=== PATIENT | female | born 1950 | race Caucasian/White ===

== ENCOUNTER 2016-06-07 14:37 | Emergency (ER) | payer OTHER ==
[2016-06-07 14:54] VITALS: BP 164/75
--- NOTE | 2016-06-07 14:56 | ED Physician Documentation ---
General Adult - HISTORIAN Historian: patient - HPI Stated Complaint: right eye redness Chief Complaint: General Adult Onset: days ago (1) Timing: still present Severity: moderate Further Comments: yes (Pt is a 66 yo female with R eye redness. Some burning irritation. No increase in pain/irritation when looking into light. No fever. Pt also has a sinus infection for which she started taking Augmentin yesterday. Pt has had one dose Augmentin.) - ROS CONST: no problems EYES/ENT: other (sinusitis, started Augmentin yesterday; R eye redness) CVS/RESP: none GI/: none MS/SKIN/LYMPH: none - PAST HX Past History: other (Afib, depression) Surgeries/Procedures: , other (mitral valve repair x 2; tonsillectomy; cataract x 2; perforated ulcer repair.) Allergies/Adverse Reactions: Allergies Allergy/AdvReac Type Severity Reaction Status Date / Time sotalol AdvReac Unknown Hives Verified 06/07/16 14:46 Sulfa (Sulfonamide AdvReac Unknown Hives Verified 06/07/16 14:46 Antibiotics) Home Medications: Ambulatory Orders Medication Instructions Recorded Diltiazem HCl [Cardizem] 120 mg PO DAILY 06/07/16 - SOCIAL HX Smoking History: non-smoker - FAMILY HX Family History: No - VITAL SIGNS Vital Signs: Vital Signs Temp Pulse Resp BP Pulse Ox 98.3 F 107 H 19 164/75 96 06/07/16 14:50 06/07/16 14:50 06/07/16 14:50 06/07/16 14:50 06/07/16 14:50 - REVIEWED ASSESSMENTS Nursing Assessment Reviewed: Yes Vitals Reviewed: Yes Progress - Progress Progress: Rx Polytrim ophthalmic. One or two drops in both eyes every 4 to 6 hrs for 7 to 10 days. Maximum 6 drops/eye/day. General Adult Physical Exam - PHYSICAL EXAM GENERAL APPEARANCE: no distress EENT: other (R eye: mild scleral injection; PERRL) NECK: normal inspection, supple RESPIRATORY: no resp distress, chest non-tender, breath sounds normal SKIN: warm/dry, normal color EXTREMITIES: normal range of motion NEURO: oriented X3, motor nml, sensation nml Discharge Clincal Impression: conjunctivitis, Recent dx sinusitis Referrals: Mounika Servin MD [Primary Care Provider] - 2 Days Home Medications: Ambulatory Orders Diltiazem HCl [Cardizem] 120 mg PO DAILY 06/07/16 Condition: Good Disposition: 01 HOME, SELF-CARE Decision to Admit: NO Decision Time: 14:56
== END 2016-06-07 15:00 | disposition home or self-care (01) ==
LOC: ED 14:37
DX: H10.9 Unspecified conjunctivitis (principal)
CPT/HCPCS: 99283

== ENCOUNTER 2016-12-15 08:56 | Outpatient (CLI) | payer OTHER, MEDICARE ==
[2016-12-15 10:02] LABS: eGFR (African) > 60; eGFR (Non-African) > 60
== END 2016-12-15 08:57 ==
LOC: LAB 08:56
PROVIDERS: ATTEND Family Medicine
DX: Z86.39 Personal history of other endocrine, nutritional and metabolic disease (principal); Z00.00 Encounter for general adult medical examination without abnormal findings
CPT/HCPCS: 36415; 80053; 80061; 84443

== ENCOUNTER 2017-01-09 12:45 | Outpatient (CLI) | payer OTHER, MEDICARE | END 2017-01-09 13:29 | LOC: RAD 12:45 | PROVIDERS: ATTEND Family Medicine | DX: M81.0 Age-related osteoporosis without current pathological fracture (principal) | CPT/HCPCS: 77080 ==

== ENCOUNTER 2017-12-17 09:03 | Outpatient (CLI) | payer OTHER ==
[2017-12-17 11:03] LABS: eGFR (Non-African) > 60
== END 2017-12-17 15:24 ==
LOC: LAB 09:03
PROVIDERS: ATTEND Family Medicine
DX: M81.0 Age-related osteoporosis without current pathological fracture (principal); Z00.00 Encounter for general adult medical examination without abnormal findings
CPT/HCPCS: 36415; 80053; 80061; 82306

== ENCOUNTER 2018-01-08 10:23 | Outpatient (CLI) | payer OTHER | END 2018-01-08 10:28 | disposition home or self-care (01) | LOC: RAD 10:23 | PROVIDERS: ATTEND Family Medicine | DX: M81.0 Age-related osteoporosis without current pathological fracture (principal) | CPT/HCPCS: 77080 ==

== ENCOUNTER 2018-02-08 07:13 | Day surgery (SDC) | payer OTHER ==
[2018-02-08] MEDS ORDERED: PROPOFOL 200 MG/20 ML VIAL IV ONE (08:48)
--- NOTE | 2018-02-08 14:20 | GI Report ---
REFERRING PHYSICIAN: Dr. Mounika Servin NAMED ACCOUNT EXECUTIVE: Jasmeet Perez MD PROCEDURE MEDICATION: Propofol as per anesthesia. INDICATIONS: Patient is a 67-year-old who has a family history of colorectal cancer. She reportedly had a positive Cologuard test. She denies any obvious changes in her stool or blood in her stool. Patient is on Xarelto for her mitral valve and stopped it 48 hours ago. She has a history of a perforated ulcer in 1987. She is stable cardiac short at present. She had a mitral valve replacement. PROCEDURE PERFORMED: Colonoscopy and polypectomy. PROCEDURE: An Olympus video colonoscope was advanced to the rectum. The colonoscope was slowly advanced all the way to the cecum. The appendiceal orifice and ileocecal valve looked normal. Near the hepatic flexure, patient had 2 polyps varying from 3 to 4 mm in size removed with a cold snare. In the main part of the transverse colon, no obvious intraluminal lesions were noted. In the descending colon, some redundancy. The sigmoid had a few small diverticula. Retroflexion of the rectum was normal. Patient tolerated the procedure well. FINDINGS: Two polyps removed near the hepatic flexure and submitted to pathology. RECOMMENDATIONS: 1. Restart her Xarelto tomorrow. 2. Pending the pathology of the polyps, consider re-looking at her colon in 5 years. cc: Dr. Mounika CHEATHAM
== END 2018-02-08 07:15 ==
LOC: OPSURG 07:13
PROVIDERS: ATTEND Internal Medicine Gastroenterology
DX: Z12.11 Encounter for screening for malignant neoplasm of colon (principal); Z80.0 Family history of malignant neoplasm of digestive organs; D12.3 Benign neoplasm of transverse colon; K57.30 Diverticulosis of large intestine without perforation or abscess without bleeding
CPT/HCPCS: 45385; 88305; J2704; S1016

== ENCOUNTER 2019-02-21 14:17 | Outpatient (CLI) | payer OTHER ==
--- NOTE | 2019-02-21 16:09 | Diagnostic Imaging Report ---
PATIENT MR#: [id number] PATIENT PATIENT NAME: CECIL KNAPP DATE OF : 1950 REFERRING PHYSICIAN: Mounika Servin EXAM DATE: 02/21/2019 ACCESSION NUMBER: [id number] EXAM DESCRIPTION: CHEST 2VIEW HISTORY: PAIN IN RT SIDE UPPER CHEST, PAIN X10 DAYS LAST WEEK WORSE, OPEN HEART SURGERY 2011 AND SEP. COMPARISON: None provided. CHEST RADIOGRAPH, FRONTAL AND LATERAL: Upper mediastinum: Not widened. Atherosclerotic calcification of aortic arch. Heart: No cardiomegaly. Aortic valve replacement ring noted. Lungs: Scattered calcified pulmonary granulomas. No lobar infiltrate, pulmonary edema, pneumothorax o r significant effusion. Skeleton: Median sternotomy. No evidence of acute fracture. IMPRESSION: 1. No acute thoracic process to explain right upper thoracic pain. 2. Status post AVR. 3. Scattered pulmonary granulomas. Read by: Dr. Sherif House Transcribed by: Sherif House Transcribed Date: 02/21/2019 4:08:33 PM Electronically signed by: Dr. Sherif House Date signed: 02/21/2019 4:08:33 PM
== END 2019-02-21 14:27 ==
LOC: RAD 14:17
PROVIDERS: ATTEND Family Medicine
DX: R07.9 Chest pain, unspecified (principal)